=== PATIENT | male | born 1940 | race Caucasian/White ===

== ENCOUNTER 2020-02-11 17:19 | Emergency (ER) | payer MEDICAID ==
[~2020-02-11] VITALS: Ht 154.9 cm; Wt 66.7 kg
[2020-02-11 17:44] VITALS: Ht 154.9 cm; Wt 66.7 kg
[2020-02-11 19:23] VITALS: BP 144/81
== END 2020-02-11 19:23 | disposition home or self-care (01) ==
LOC: ED 17:19
DX: I11.0 Hypertensive heart disease with heart failure (principal); I10 Essential (primary) hypertension; E11.9 Type 2 diabetes mellitus without complications; E78.00 Pure hypercholesterolemia, unspecified